=== PATIENT | female | born 1955 | race Two or more races ===

== ENCOUNTER 2022-06-21 15:08 | Inpatient (IN) | payer OTHER, MEDICAID ==
[~2022-06-21] VITALS: Ht 167.6 cm; Wt 99.0 kg
[2022-06-21 16:38] LABS: Basophils # (auto) 0.1 10 ^3/uL (0-0.2); Basophils % (auto) 0.8 % (0.0-2.0); Eosinophils # (auto) 0.2 10 ^3/uL (0-0.8); Hematocrit 41.1 % (36.0-46.0); Hemoglobin 13.1 g/dL (12.2-16.2); Lymphocytes # (auto) 2.8 10 ^3/uL (0.4-5.4); Lymphocytes % (auto) 38.5 % (10.0-50.0); Mean Corpuscular Hemoglobin 27.4 pg (28.0-32.0); Mean Corpuscular Hgb Conc. 31.9 g/dL (32.0-36.0); Monocytes # (auto) 0.8 10 ^3/uL (0-1.3); Monocytes % (auto) 11.3 % (0.0-12.0); Neutrophils # (auto) 3.4 10 ^3/uL (1.6-8.6); Neutrophils % (auto) 46.4 % (37.0-80.0); Red Blood Cells 4.78 10^6/uL (4.0-5.20); Red Cell Distribution Width 14.3 % (11.8-14.3); White Blood Cell 7.3 10^3/uL (4.4-10.8)
[2022-06-21 16:47] LABS: Calcium 9.2 mg/dL (8.5-10.1)
[2022-06-21 16:50] LABS: BUN/Creatinine Ratio 17.4
[2022-06-21 16:56] LABS: Bilirubin, Total 0.2 mg/dL (0.2-1.0); Total Protein 6.6 g/dL (6.4-8.2)
[2022-06-21] MEDS ORDERED: hydrALAZINE HCL 20 MG/ML VL IV PRN (21:00)
[2022-06-21] MEDS ORDERED: DEXTROSE (50%) 50ML SYRG IV PRN (21:00)
[2022-06-21] MEDS ORDERED: DOCUSATE SOD 100 MG CAP PO PRN (21:00)
[2022-06-21] MEDS ORDERED: ONDANSETRON HCL 4 MG/2 ML VIAL IV PRN (21:00)
[2022-06-21] MEDS ORDERED: ACETAMINOPHEN 325 MG TAB PO PRN (21:00)
[2022-06-21] MEDS ORDERED: HYDROcodone-ACET 5/325MG TAB PO PRN (21:00)
[2022-06-21] MEDS: SODIUM CHLOR 0.9% PF (SALINE LOCK) 10ML VIAL/SYR IV SCH (22:00)
[2022-06-21] MEDS: ACCU-CHEK COMFORT CURVE STRIP VI SCH (22:19)
[2022-06-21] MEDS: InsuLIN REG 1unit/0.01ml Soln (100units/ml) SC SCH (22:59)
[2022-06-21] MEDS ORDERED: NITROGLYCERIN 0.4 MG SL TAB SL PRN (23:00)
[2022-06-21] MEDS ORDERED: MORPHINE SULFATE INJ 2 MG/ml SYRG IV PRN (23:00)
[2022-06-22 06:24] LABS: Basophils # (auto) 0.1 10 ^3/uL (0-0.2); Eosinophils # (auto) 0.2 10 ^3/uL (0-0.8); Hemoglobin 12.9 g/dL (12.2-16.2); Lymphocytes # (auto) 2.2 10 ^3/uL (0.4-5.4); Mean Corpuscular Hgb Conc. 31.7 g/dL (32.0-36.0); Monocytes # (auto) 0.6 10 ^3/uL (0-1.3)
[2022-06-22 06:25] LABS: Basophils % (auto) 0.8 % (0.0-2.0); Eosinophils % (auto) 2.4 % (0.0-7.0); Hematocrit 40.6 % (36.0-46.0); Lymphocytes % (auto) 28.7 % (10.0-50.0); Mean Corpuscular Hemoglobin 26.9 pg (28.0-32.0); Mean Corpuscular Volume 84.8 fL (80.0-100.0); Monocytes % (auto) 7.9 % (0.0-12.0); Neutrophils # (auto) 4.7 10 ^3/uL (1.6-8.6); Neutrophils % (auto) 60.2 % (37.0-80.0); Nucleated Red Blood Cells % 0.2 %; Red Blood Cells 4.78 10^6/uL (4.0-5.20); Red Cell Distribution Width 14.4 % (11.8-14.3); White Blood Cell 7.8 10^3/uL (4.4-10.8)
[2022-06-22] MEDS: ACCU-CHEK COMFORT CURVE STRIP VI SCH ×4 (06:37→22:30)
[2022-06-22] MEDS: SODIUM CHLOR 0.9% PF (SALINE LOCK) 10ML VIAL/SYR IV SCH ×3 (06:37→22:30)
[2022-06-22 06:43] LABS: Albumin 2.9 g/dL (3.4-5.0); BUN/Creatinine Ratio 14.5; Calcium 8.9 mg/dL (8.5-10.1); Potassium 3.8 mmol/L (3.5-5.1)
[2022-06-22 06:46] LABS: Bilirubin, Total 0.4 mg/dL (0.2-1.0); Total Protein 6.6 g/dL (6.4-8.2)
[2022-06-22] MEDS: InsuLIN REG 1unit/0.01ml Soln (100units/ml) SC SCH ×4 (06:46→22:31)
[2022-06-22] MEDS: ASPirin 81 mg TAB PO SCH (10:41)
[2022-06-22] MEDS: FAMOTIDINE (10MG/ML) 2ML VL IV SCH (10:41)
[2022-06-22 13:30] VITALS: BP 152/72
[2022-06-22] MEDS ORDERED: AMLO-489 PO (16:38)
[2022-06-22] MEDS ORDERED: POTA-264 PO (16:38)
[2022-06-22] MEDS ORDERED: QUET100T47 PO (16:38)
[2022-06-22] MEDS ORDERED: METF-372 PO (16:38)
[2022-06-22] MEDS ORDERED: FUR20T PO (16:38)
[2022-06-22] MEDS ORDERED: ASPI-325 PO (16:38)
[2022-06-22] MEDS ORDERED: ATEN50TA PO (16:38)
[2022-06-22 16:50] VITALS: BP 127/93
[2022-06-22 22:00] VITALS: BP 139/77
[2022-06-23 05:00] VITALS: BP 132/80
[2022-06-23] MEDS: ACCU-CHEK COMFORT CURVE STRIP VI SCH ×4 (06:23→22:05)
[2022-06-23] MEDS: SODIUM CHLOR 0.9% PF (SALINE LOCK) 10ML VIAL/SYR IV SCH ×3 (06:23→22:06)
[2022-06-23] MEDS: InsuLIN REG 1unit/0.01ml Soln (100units/ml) SC SCH ×4 (06:24→22:09)
[2022-06-23 09:00] VITALS: BP 133/86
[2022-06-23] MEDS: FAMOTIDINE (10MG/ML) 2ML VL IV SCH (09:50)
[2022-06-23] MEDS: ASPirin 81 mg TAB PO SCH (09:55)
[2022-06-23 13:00] VITALS: BP 140/94
[2022-06-23 17:00] VITALS: BP 135/88
[2022-06-23 22:00] VITALS: BP 124/65
[2022-06-24 05:00] VITALS: BP 107/68
[2022-06-24] MEDS: SODIUM CHLOR 0.9% PF (SALINE LOCK) 10ML VIAL/SYR IV SCH ×2 (05:33→14:00)
[2022-06-24] MEDS: InsuLIN REG 1unit/0.01ml Soln (100units/ml) SC SCH ×4 (06:04→21:50)
[2022-06-24] MEDS: ACCU-CHEK COMFORT CURVE STRIP VI SCH ×4 (06:04→21:50)
[2022-06-24 09:00] VITALS: BP 123/82
[2022-06-24] MEDS: ASPirin 81 mg TAB PO SCH (10:00)
[2022-06-24] MEDS: FAMOTIDINE (10MG/ML) 2ML VL IV SCH (10:15)
[2022-06-24 11:01] LABS: Free T4 (Free Thyroxine) 1.06 ng/dL (0.89-1.76)
[2022-06-25] MEDS: ACCU-CHEK COMFORT CURVE STRIP VI SCH ×4 (06:57→21:44)
[2022-06-25] MEDS: SODIUM CHLOR 0.9% PF (SALINE LOCK) 10ML VIAL/SYR IV SCH ×4 (06:57→21:44)
[2022-06-25] MEDS: InsuLIN REG 1unit/0.01ml Soln (100units/ml) SC SCH ×4 (06:57→21:45)
[2022-06-25 08:00] VITALS: BP 138/84
[2022-06-25 09:00] VITALS: BP 138/84
[2022-06-25] MEDS: FAMOTIDINE (10MG/ML) 2ML VL IV SCH (10:24)
[2022-06-25] MEDS: ASPirin 81 mg TAB PO SCH (10:24)
[2022-06-25 11:42] LABS: Folate (Folic Acid) 14.23 ng/mL (5.38-24)
[2022-06-25 12:53] VITALS: BP 146/86
[2022-06-25 16:55] VITALS: BP 121/90
[2022-06-25 22:00] VITALS: BP 128/90
[2022-06-25] MEDS ORDERED: DONEPEZIL HYDROCHLORIDE 5 MG TAB PO SCH (22:00)
[2022-06-26 05:00] VITALS: BP 122/91
[2022-06-26] MEDS: SODIUM CHLOR 0.9% PF (SALINE LOCK) 10ML VIAL/SYR IV SCH (05:38)
[2022-06-26] MEDS: ACCU-CHEK COMFORT CURVE STRIP VI SCH ×2 (06:08→11:30)
[2022-06-26] MEDS: InsuLIN REG 1unit/0.01ml Soln (100units/ml) SC SCH ×2 (06:08→12:14)
[2022-06-26 09:00] VITALS: BP 143/93
[2022-06-26] MEDS: FAMOTIDINE (10MG/ML) 2ML VL IV SCH (10:08)
[2022-06-26] MEDS: ASPirin 81 mg TAB PO SCH (10:08)
[2022-06-26 13:00] VITALS: BP 142/92
== END 2022-06-26 16:18 | DRG 71 ==
LOC: ER 15:08 → EDBD 15:08 → TELE 22:55 → TELE-WESTW 06-22 13:44
PROVIDERS: ADMIT Nurse Practitioner Family; ATTEND Family Medicine
DX: G93.41 Metabolic encephalopathy (principal); E44.0 Moderate protein-calorie malnutrition; G91.2 (Idiopathic) normal pressure hydrocephalus; G30.9 Alzheimer's disease, unspecified; F02.80 Dementia in other diseases classified elsewhere, unspecified severity, without behavioral disturbance, psychotic disturbance, mood disturbance, and anxiety; E11.9 Type 2 diabetes mellitus without complications; Z20.822 Contact with and (suspected) exposure to COVID-19; I10 Essential (primary) hypertension; Z81.8 Family history of other mental and behavioral disorders; Z82.49 Family history of ischemic heart disease and other diseases of the circulatory system; Z66 Do not resuscitate
CPT/HCPCS: 36415; 70450; 71045; 80053; 82607; 82746; 82962; 83036; 83735; 83880; 84439; 84443; 84484; 85025; 87081; 87426; 87804; 93005; 95819; 96372; 96374; 97110; 97116; 97162; 97530; G0378; J1815; J3490